=== PATIENT | female | born 1980 | race Caucasian/White ===

== ENCOUNTER → 2022-11-29 | Outpatient (CLI) | payer OTHER, SELFPAY ==
--- NOTE | 2022-11-29 16:35 | LES_PTH ---
PATIENT: MAYCO MANDUJANO LOC: [facility] U#:[id number] AGE/SX: 42/F ROOM: RE11/29/[address]: Dr. Eulogio Nevarez MD : [id number] BED: DIS: 11/29/2022 SPEC #: [id number] RECD: 11/30/22 10:01 STATUS: [facility] DARRIN #: [id number] BERNARDO: 11/29/22 16:[address]: Eulogio Nevarez DEPT: SURGICAL PATHOLOGY RECD BY: Juana Sandhu Tissues: Skin of eyelid, NOS Procedures: Surgery Specimen Level IV HEADER OPERATION: Right upper lid lesion PRE-OP DIAGNOSIS: Right upper lid lesion TISSUE SUBMITTED: Right upper lid lesion MICROSCOPIC DIAGNOSIS Right upper lid lesion, biopsy: Consistent with xanthelasma. AM:carmelita 12/03/2022 MICROSCOPIC DESCRIPTION Slides are reviewed. GROSS DESCRIPTION Received is one container labeled with the patient's name and not further designated. The specimen consists of a michel-white skin ellipse measuring 1.0 x 0.5 x 0.1 cm. The specimen is inked, serially sectioned and submitted entirely in one cassette. / SJ:rg 11/30/2022 TC:5 CPT: 18609
== END | disposition home or self-care (01) ==
LOC: LABSPEC 11-30 10:31
PROVIDERS: Referring Provider Ophthalmology; Visit Provider Ophthalmology
DX: H02.821 Cysts of right upper eyelid (principal)
CPT/HCPCS: 88305